=== PATIENT | male | born 1975 | race Caucasian/White ===

== ENCOUNTER 2019-02-07 17:26 | Emergency (ER) | payer OTHER ==
[2019-02-07 17:39] VITALS: BP 128/78
--- NOTE | 2019-02-07 17:57 | UC ---
Knee Pain HPI - HPI Summary HPI Summary: Fall within the hour: was leaving work at [employer], stepped down with right leg, felt immediate pain and fell backwards. Immediate onset of pain and swelling in the right knee with inability to bear weight. 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 Had a leg lengnthening procedure as a teen. 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 - History of Current Complaint Chief Complaint: UCLowerExtremity Stated Complaint: RT KNEE INJURY Time Seen by Provider: 02/07/19 17:45 Hx Obtained From: Patient Onset/Duration: Sudden Onset Severity Initially: Moderate Severity Currently: Moderate Pain Intensity: 9 Character: Throbbing Aggravating Factor(s): Movement Alleviating Factor(s): Rest, Cold, OTC Meds Associated Signs And Symptoms: Positive: Swelling Able to Bear Weight: No - Allergies/Home Medications Allergies/Adverse Reactions: Allergies Allergy/AdvReac Type Severity Reaction Status Date / Time amoxicillin Allergy Hives Verified 02/07/19 17:39 PMH/Surg Hx/FS Hx/Imm Hx - Additional Past Medical History Additional PMH: Right foot deformity, congenital right leg abnormality Previously Healthy: No - overweight, chronic tobacco use. Varicose veins with venous stasis - Surgical History Surgical History: Yes Surgery Procedure, Year, and Place: right leg multiple surgeries - Family History Known Family History: Positive: Hypertension, Other - mother has osteoarthritis , osteoporosis Negative: Cardiac Disease, Diabetes - Social History Occupation: Employed Full-time Lives: With Family Alcohol Use: Rare Substance Use Type: Marijuana, Other Substance Use Comment - Amount & Last Used: weekly Smoking Status (MU): Light Every Day Tobacco Smoker Review of Systems All Other Systems Reviewed And Are Negative: Yes Constitutional: Positive: Negative Skin: Positive: Other - erythema in right foreleg off and on consistent with venous stasis. Varicosities--tortuous on upper thigh Eyes: Positive: Negative ENT: Positive: Negative Respiratory: Positive: Negative Cardiovascular: Positive: Negative Gastrointestinal: Positive: Negative Genitourinary: Positive: Negative Motor: Positive: Decreased ROM Neurovascular: Positive: Negative Musculoskeletal: Positive: Arthralgia Neurological: Positive: Negative Psychological: Positive: Negative Is Patient Immunocompromised?: No Physical Exam Triage Information Reviewed: Yes Appearance: Pain Distress - moderate intially., Obese Vital Signs: Initial Vital Signs Temp 98.1 F 05/30/19 17:34 Pulse 87 02/07/19 17:34 Resp 12 02/07/19 17:34 BP 128/78 02/07/19 17:34 Pulse Ox 97 02/07/19 17:34 ENT: Positive: Normal ENT inspection Neck exam: Normal Respiratory: Positive: Lungs clear, Normal breath sounds Cardiovascular: Positive: RRR, No Murmur Musculoskeletal Exam: Other - grapefruit sized effusion right knee. No patellar tenderness. Musculoskeletal: Positive: ROM Limited @ - right oswaldo with active flexion to 80 degrees, cannot extend fully., Other: - Exam limited by pain and swelling. Moderate bilateral joint line tenderness. Right ankle with limted range of motion. Right foot deformity with 3 digits. Neurological: Positive: Alert, Muscle Tone Normal Psychological Exam: Normal Skin Exam: Other - diffuse erythema right ankle area with trace of pitting edema. small 1 cm scars right medial ankle area with mild tenderness. Tender varicosities medial right knee. Diagnostics - Radiology No standard instances Radiology Interpretation Completed By: ED Physician Summary of Radiographic Findings: right knee + soft tissue swelling. Medial joint space narrowing. Knee Pain Course/Dx - Course Course Of Treatment: Crutches, no weight bearing, ice and ibuprofen Referred to orthopedics. - Differential Dx/Diagnosis Differential Diagnosis/HQI/PQRI: Internal Derangement Of Knee, Sprain, Strain Provider Diagnosis: Strain of right knee Discharge - Sign-Out/Discharge Documenting (check all that apply): Patient Departure All imaging exams completed and their final reports reviewed: No - Discharge Plan Condition: Good Disposition: HOME Patient Education Materials: Knee Pain (ED) Forms: *Work Release Referrals: Jessica Carmona MD [Primary Care Provider] - Jennifer Delcid MD [Medical Doctor] - Additional Instructions: Off work until assessed by Orthopedics. Use crutchest to keep minimal weight through the right knee. Keep your leg elevated with ice on the knee for 30 minutes every 1 to 2 hours. Use ibuprofen 800mg three time daily for relief of pain. - Billing Disposition and Condition Condition: GOOD Disposition: Home
[2019-02-07] MEDS ORDERED: Ibuprofen TAB* 400 MG PO ONE (18:00)
== END 2019-02-07 19:25 | disposition home or self-care (01) ==
LOC: UCEAST 17:26
DX: S86.811A Strain of other muscle(s) and tendon(s) at lower leg level, right leg, initial encounter (principal); E66.9 Obesity, unspecified; Z88.0 Allergy status to penicillin; F17.290 Nicotine dependence, other tobacco product, uncomplicated; X50.0XXA Overexertion from strenuous movement or load, initial encounter; Y92.9 Unspecified place or not applicable
CPT/HCPCS: 99212; A9270-GY; G0463

== ENCOUNTER 2019-05-30 17:10 | Emergency (ER) | payer OTHER ==
--- OUTSIDE RECORDS SUMMARY | 2019-05-30 17:19 | XMS REPORT | Continuity of Care Document ---
:1975 External Reference #:[id number] Author Name Thalia Lilly Care Team Providers Name Role Phone Jessica Carmona MD Primary Care Physician Unavailable Payers Date Identification Numbers Payment Provider Subscriber Policy Number: [id number] [employer] Llyod Mcnamara Group Number: [id number] [address] PayID: [id number] [place] [address] Onset: 2019 Policy Number: Pradoher Ruben Mcnamara [id number] Group Name: F: [phone] [address] PayID: [id number] [place] [address] Problems Active Problems Provider Date Sprain of medial collateral ligament of right Ira Hill M.D. Onset: 04/15 knee, subsequent encounter Localized, primary osteoarthritis Ira Hill M.D. Onset: 02/11/2019 Other specified congenital deformities of feet Ashutosh Trimble MD Onset: 01/04 Family History Date Family Member(s) Observation Comments General Cancer Social History Type Date Description Comments Sex Unknown Lives With Alone Occupation Currently Working ETOH Use Never used alcohol Tobacco Use Start: Unknown Patient is a current smoker, smokes every day Smoking Status Reviewed: 04/15/19 Patient is a current smoker, smokes every day Exercise Type/Frequency Exercises sporadically Allergies, Adverse Reactions, Alerts Active Allergies Reaction Severity Comments Date Penicillin 01/04/2019 Medications Active Medications SIG Qnty Indications Ordering Date Provider Morphine Sulfate take 1 tab by mouth Unknown 30mg every 12 hours as Tablets needed for breakthrough pain Dilaudid 1 by mouth every 4 Unknown 2mg Tablets hours as needed pain Medications Administered in Office Medication SIG Qnty Indications Ordering Provider Date Depomedrol 40MG Ira Hill M.D. 02/11/2019 Injection Vital Signs Date Vital Result Comment 04/15/2019 1:43pm Height 75 inches 6'3" Heart Rate 103 /min BP Systolic 126 mmHg BP Diastolic 84 mmHg Body Temperature 98.2 F Pain Level 0 04/01/2019 3:12pm Height 75 inches 6'3" Weight 263.00 lb BP Systolic 130 mmHg BP Diastolic 74 mmHg Respiratory Rate 16 /min Body Temperature 97.4 F Pain Level 3 BMI (Body Mass Index) 32.9 kg/m2 02/11/2019 10:47am Height 75 inches 6'3" Weight 263.75 lb Heart Rate 76 /min BP Systolic 120 mmHg BP Diastolic 70 mmHg Respiratory Rate 18 /min Pain Level 7 BMI (Body Mass Index) 33.0 kg/m2 01/04/2019 3:11pm Height 73 inches 6'1" Weight 264.00 lb Heart Rate 84 /min BP Systolic 122 mmHg BP Diastolic 76 mmHg Respiratory Rate 16 /min Pain Level 5 BMI (Body Mass Index) 34.8 kg/m2 Procedures Date Code Description Status 02/11/2019 14006 Inject/Drain Joint/Bursa Major W/O US Completed Encounters Type Date Location Provider Dx Diagnosis Office Visit 02/11/2019 [facility] Ira Hill, M25.561 Pain in right 10:15a [facility] knee M25.461 Effusion, right knee M17.11 Unilateral primary osteoarthritis, right knee S83.411A Sprain of medial collateral ligament of right knee, init Office Visit 01/04/2019 3:00p [facility] Ashutosh Trimble, Q66.89 Other specified [facility] deformities of feet M19.071 Primary osteoarthritis, right ankle and foot Plan of Treatment 04/15/2019 - Ira Hill M.D.M25.561 Pain in right kneeFollow up:Follow up: As [id number] Effusion, right kneeS83.411D Sprain of medial collateral ligament of right knee, subsequent [id number] Unilateral primary osteoarthritis, right knee
--- OUTSIDE RECORDS SUMMARY | 2019-05-30 17:19 | XMS REPORT | Continuity of Care Document ---
:1975 External Reference #:[id number] Author Name Nikos Merritt DO, MPH Address [address] [place] [address], [address] [place] [id number] Care Team Providers Name Role Phone Roxie Payne M.D. - Physical Care Team Information Senior Security Architect [phone] Medicine & Rehabilitation Jessica Carmona M.D. - Family Medicine Care Team Information Senior Security Architect [phone] Vishnu Parikh M.D. - Family Medicine Care Team Information Senior Security Architect Problems Active Problems Provider Date Deformity Varus Foot Other Congenital Nikos Merritt DO, MPH Onset: 08/13/2004 Enthesopathy of ankle AND/OR tarsus Nikos Merritt DO, MPH Onset: 08/13/2004 Bunion Nikos Merritt DO, MPH Onset: 08/13/2004 Social History Type Date Description Comments Sex Unknown Tobacco Use Start: Unknown Patient is a current smoker, smokes every day Smoking Status Reviewed: 04/25/19 Patient is a current smoker, smokes every day Allergies, Adverse Reactions, Alerts Active Allergies Reaction Severity Comments Date Amoxicillin 07/20/2005 Medications Active Medications SIG Qnty Indications Ordering Provider Date Maryan si by mouth 60caps Nikos Merritt DO, 12/03/2012 30mg Caps ER every 12h for MPH 24HR pain chronic pain patient Dilaudid si every 4 to 180tabs Nikos Merritt DO, 12/03/2012 2mg Tablets 6 hours as MPH directed chronic pain patient Immunizations Description No Information Available Vital Signs Date Vital Result Comment 04/25/2019 2:35pm BP Systolic 144 mmHg BP Diastolic 82 mmHg Heart Rate 80 /min Respiratory Rate 20 /min Height 73 inches 6'1" Weight 259.00 lb Pain Level 5 Pain at this time. Pain Level With Medicine 5 on average with meds Pain Level Without Medicine 9 without meds BMI (Body Mass Index) 34.2 kg/m2 04/04/2019 2:00pm BP Systolic 138 mmHg BP Diastolic 74 mmHg Heart Rate 80 /min Respiratory Rate 20 /min Height 73 inches 6'1" Weight 254.00 lb Pain Level 5 Pain at this time. Pain Level With Medicine 4 on average with meds Pain Level Without Medicine 9 without meds BMI (Body Mass Index) 33.5 kg/m2 Results Description No Information Available Procedures Date Code Description Status 04/04/2019 96274 Therapeutic, Prophylactic Or Diagnostic Injection Subq/Im Completed 01/03/2019 68251 Omt 3-4 Body Regions Completed 12/05/2018 89125 Omt 5-6 Body Regions Completed 11/05/2018 37611 Omt 5-6 Body Regions Completed Medical Devices Description No Information Available Encounters Type Date Location Provider Dx Diagnosis Office Visit 04/04/2019 Main Office as Of Nikos Merritt DO G89.21 Chronic pain due 2:15p 10/12/13 MPH to trauma M54.2 Cervicalgia M54.5 Low back pain M25.571 Pain in right ankle and joints of right foot Z79.891 half-way (current) use of opiate analgesic Office Visit 03/05/2019 3:00p Main Office as Nikos Merritt G89.21 Chronic pain due Of 10/12/13 , MPH to trauma M54.2 Cervicalgia M54.6 Pain in thoracic spine M54.5 Low back pain Z79.891 termite treater helper (current) use of opiate analgesic Office Visit 01/31/2019 3:45p Main Office as Nikos Merritt G89.21 Chronic pain due Of 10/12/13 DO, MPH to trauma M54.5 Low back pain M54.6 Pain in thoracic spine M54.2 Cervicalgia Z79.891 half-way (current) use of opiate analgesic Office Visit 01/03/2019 4:00p Main Office as Nikos Merritt G89.21 Chronic pain due Of 10/12/13 DO, MPH to trauma M54.5 Low back pain M99.03 Segmental and somatic dysfunction of lumbar region M54.6 Pain in thoracic spine M99.02 Segmental and somatic dysfunction of thoracic region M54.2 Cervicalgia M99.01 Segmental and somatic dysfunction of cervical region Z79.891 termite treater helper (current) use of opiate analgesic Office Visit 12/05/2018 4:00p Main Office as Nikos Merritt G89.21 Chronic pain due Of 10/12/13 DO, MPH to trauma M54.2 Cervicalgia M99.01 Segmental and somatic dysfunction of cervical region M54.6 Pain in thoracic spine M99.02 Segmental and somatic dysfunction of thoracic region M54.5 Low back pain M99.03 Segmental and somatic dysfunction of lumbar region M53.3 Sacrococcygeal disorders, not elsewhere classified M99.04 Segmental and somatic dysfunction of sacral region M25.552 Pain in left hip M99.05 Segmental and somatic dysfunction of pelvic region Z79.891 termite treater helper (current) use of opiate analgesic M25.551 Pain in right hip Office Visit 11/05/2018 4:00p Main Office as Nikos Merritt G89.21 Chronic pain due Of 10/12/13 DO, MPH to trauma M54.2 Cervicalgia M99.01 Segmental and somatic dysfunction of cervical region M54.6 Pain in thoracic spine M99.02 Segmental and somatic dysfunction of thoracic region M54.5 Low back pain M99.03 Segmental and somatic dysfunction of lumbar region M53.3 Sacrococcygeal disorders, not elsewhere classified M99.04 Segmental and somatic dysfunction of sacral region M25.552 Pain in left hip M99.05 Segmental and somatic dysfunction of pelvic region Z79.891 half-way (current) use of opiate analgesic Assessments Date Code Description Provider 04/25/2019 G89.21 Chronic pain due to trauma Nikos Merritt DO MPH 04/25/2019 M54.5 Low back pain Nikos Merritt DO MPH 04/25/2019 M99.03 Segmental and somatic dysfunction of lumbar Nikos Merritt DO MPH region 04/25/2019 M54.6 Pain in thoracic spine Nikos Merritt DO MPH 04/25/2019 M99.02 Segmental and somatic dysfunction of Merritt, Nikos, DO, MPH thoracic region 04/25/2019 M54.2 Cervicalgia Merritt, Nikos, DO, MPH 04/25/2019 M99.01 Segmental and somatic dysfunction of Merritt, Nikos, DO, MPH cervical region 04/25/2019 Z79.891 half-way (current) use of opiate analgesic Merritt, Nikos , DO, MPH 04/04/2019 G89.21 Chronic pain due to trauma Merritt, Nikos, DO, MPH 04/04/2019 M54.2 Cervicalgia Merritt, Nikos, DO, MPH 04/04/2019 M54.5 Low back pain Merritt, Nikos, DO, MPH 04/04/2019 M25.571 Pain in right ankle and joints of right foot Merritt, Nikos , DO, MPH 04/04/2019 Z79.891 half-way (current) use of opiate analgesic Merritt, Nikos , DO, MPH 03/05/2019 G89.21 Chronic pain due to trauma Merritt, Nikos, DO, MPH 03/05/2019 M54.2 Cervicalgia Merritt, Nikos, DO, MPH 03/05/2019 M54.6 Pain in thoracic spine Merritt, Nikos, DO, MPH 03/05/2019 M54.5 Low back pain Merritt, Nikos, DO, MPH 03/05/2019 Z79.891 termite treater helper (current) use of opiate analgesic Merritt, Nikos , DO, MPH 01/31/2019 G89.21 Chronic pain due to trauma Merritt, Nikos, DO, MPH 01/31/2019 M54.5 Low back pain Merritt, Nikos, DO, MPH 01/31/2019 M54.6 Pain in thoracic spine Merritt, Nikos, DO, MPH 01/31/2019 M54.2 Cervicalgia Merritt, Nikos, DO, MPH 01/31/2019 Z79.891 termite treater helper (current) use of opiate analgesic Merritt, Nikos , DO, MPH 01/03/2019 G89.21 Chronic pain due to trauma Merritt, Nikos, DO, MPH 01/03/2019 M54.5 Low back pain Merritt, Nikos, DO, MPH 01/03/2019 M99.03 Segmental and somatic dysfunction of lumbar Merritt, Nikos, DO, MPH region 01/03/2019 M54.6 Pain in thoracic spine Merritt, Nikos, DO, MPH 01/03/2019 M99.02 Segmental and somatic dysfunction of Merritt, Nikos, DO, MPH thoracic region 01/03/2019 M54.2 Cervicalgia Merritt, Nikos, DO, MPH 01/03/2019 M99.01 Segmental and somatic dysfunction of Merritt, Nikos, DO, MPH cervical region 01/03/2019 Z79.891 half-way (current) use of opiate analgesic Merritt, Nikos , DO, MPH 12/05/2018 G89.21 Chronic pain due to trauma Merritt, Nikos, DO, MPH 12/05/2018 M54.2 Cervicalgia Merritt, Nikos, DO, MPH 12/05/2018 M99.01 Segmental and somatic dysfunction of Merritt, Nikos, DO, MPH cervical region 12/05/2018 M54.6 Pain in thoracic spine Merritt, Nikos, DO, MPH 12/05/2018 M99.02 Segmental and somatic dysfunction of Merritt, Nikos, DO, MPH thoracic region 12/05/2018 M54.5 Low back pain Merritt, Nikos, DO, MPH 12/05/2018 M99.03 Segmental and somatic dysfunction of lumbar Merritt, Nikos, DO, MPH region 12/05/2018 M53.3 Sacrococcygeal disorders, not elsewhere Merritt, Nikos, DO, MPH classified 12/05/2018 M99.04 Segmental and somatic dysfunction of sacral Merritt, Nikos, DO, MPH region 12/05/2018 M25.552 Pain in left hip Merritt, Nikos, DO, MPH 12/05/2018 M99.05 Segmental and somatic dysfunction of pelvic Merritt, Nikos, DO, MPH region 12/05/2018 Z79.891 half-way (current) use of opiate analgesic Merritt, Nikos , DO, MPH 12/05/2018 M25.551 Pain in right hip Merritt, Nikos, DO, MPH 11/05/2018 G89.21 Chronic pain due to trauma Merritt, Nikos, DO, MPH 11/05/2018 M54.2 Cervicalgia Nikos Merritt DO MPH 11/05/2018 M99.01 Segmental and somatic dysfunction of Nikos Merritt DO, MPH cervical region 11/05/2018 M54.6 Pain in thoracic spine Nikos Merritt DO MPH 11/05/2018 M99.02 Segmental and somatic dysfunction of Nikos Merritt DO, MPH thoracic region 11/05/2018 M54.5 Low back pain Nikos Merritt DO MPH 11/05/2018 M99.03 Segmental and somatic dysfunction of lumbar Nikos Merritt DO, MPH region 11/05/2018 M53.3 Sacrococcygeal disorders, not elsewhere Nkios Merritt DO MPH classified 11/05/2018 M99.04 Segmental and somatic dysfunction of sacral Nikos Merritt DO, MPH region 11/05/2018 M25.552 Pain in left hip Nikos Merritt DO MPH 11/05/2018 M99.05 Segmental and somatic dysfunction of pelvic Nikos Merritt DO, MPH region 11/05/2018 Z79.891 termite treater helper (current) use of opiate analgesic Nikos Merritt DO MPH Plan of Treatment Future Appointment(s):05/31/2019 2:30 pm - Nikos Merritt DO MPH at Main Office as Of 10/12/1407 - Nikos Merritt DO MPHG89.21 Chronic pain due to traumaComments:Chronic. Symptoms and complaints discussed and reviewed today. No significant changes in physical findings. Continue current medical pain management.M54.5 Low back painComments:Chronic. Symptoms and complaints discussed and reviewed today.No changes in physical findings. Patient is stable and comfortable when current medical therapy is rendered.M99.03 Segmental and somatic dysfunction of lumbar regionComments:Chronic. Symptoms and complaints discussed and reviewed today. Lumbar somatic dysfunctions noted warranting OMT. Continue current medical pain management and OMT. [id number]. OMT performed after evaluation. HVLA.M54.6 Pain in thoracic spineComments:Chronic.Symptoms and complaints discussed and reviewed today. No significant changes in physical findings. Continue current medical pain management.M99.02 Segmental and somatic dysfunction of thoracic regionComments:Chronic. Symptoms and complaints discussed and reviewed today. Notable somatic dysfunctions noted warranting OMT. Continue current medical pain management and OMT. [id number]. OMT performed after evaluation. HVLA.M54.2 CervicalgiaComments:Chronic. Symptoms and complaints discussed and reviewed today. No significant changes in physical findings. Continue current medical pain management.M99.01 Segmental and somatic dysfunction of cervical regionComments:Chronic. Symptoms and complaints discussed and reviewed today. Somatic dysfunctions noted warrantingOMT. Continue current medical pain management and OMT. [id number]. OMT performed.Z79.891 half-way (current) use of opiate analgesicNew Labs:Urine Drug Screen, Ordered: 04/25/19Comments:Urine drug screen sample taken today to monitor opiate use and to monitor use of illicit substances.Will discuss results at next appointment.The following tests were ordered:6 AM, AMPH, GABINO, IBRAHIMA, BUP, CARIS, COCM, COT, ETG, FENT, MCSHSG, OPI, OXY, PCP, TAPEN, XTSY, ZOLP. A urine drug test (UDT) was ordered for this patient and collected on site today. Creatinine has been ordered as well for specimen validity, not for kidney function. Preliminary UDT results are not final and should not be used to determine patient care or plan of treatment. Initially a qualitative immunoassay screen will be done. Any inconsistent or positive findings will be further tested with a more comprehensive quantitative confirmation LCMS study. It is part of the treatment process of prescribing controlled substances and is considered standard of care.AllComments:Continue current medical pain management ; injection therapy, osteopathic manipulation, PT / modalities, and consults as needed to manage chronic pain.Non - opioid pain management discussed and optionsdiscussed.Side effects discussed; anticipatory guidance given. Patient clearly understand and agree with all medical treatments and suggestions. All medicines prescribed are adequate and appropriate for this patient's complaint of pain, medical history, physical, and personal goals.Goals of Treatment are to provide adequate and appropriate multidisciplinary medical pain management to increase/ maintain patient's quality of life and functionality while maintaining satisfactory side effect profile andminimizing custodial end-organ damage. Importance of regular nutrition throughout the day discussed.Activity as toleratedContinue with PCP Functional Status Description No Information Available Mental Status Description No Information Available Referrals Description No Information Available
--- OUTSIDE RECORDS SUMMARY | 2019-05-30 17:20 | XMS REPORT | Continuity of Care Document ---
:1975 External Reference #:[id number] Author Name Stella Quintero Care Team Providers Name Role Phone Jessica Carmona MD Primary Care Physician Unavailable Payers Date Identification Numbers Payment Provider Subscriber Policy Number: [id number] [employer] Lloyd Mcnamara Group Number: [id number] [address] PayID: [id number] [place] [address] Onset: 2019 Policy Number: Pradojuanita Mcnamara [id number] Group Name: F: [phone] [address] PayID: [id number] [place] [address] Problems Active Problems Provider Date Localized, primary osteoarthritis Ira Hill M.D. Onset: 02/11/2019 Other specified congenital deformities of feet Ashutosh Trimble MD Onset: 01/04 Family History Date Family Member(s) Observation Comments General Cancer Social History Type Date Description Comments Sex Unknown Lives With Alone Occupation Currently Working ETOH Use Never used alcohol Tobacco Use Start: Unknown Patient is a current smoker, smokes every day Smoking Status Reviewed: 04/01/19 Patient is a current smoker, smokes every [...] Injection Vital Signs Date Vital Result Comment 04/01/2019 3:12pm Height 75 inches 6'3" Weight [...] 5 BMI (Body Mass Index) 34.8 kg/m2 Results Test Date Facility Test Result H/L Range Note Xray 02/11/2019 [facility] Knee Right 1-2 VWS <pending> [address] [address] [phone] Procedures Date Code Description Status 02/11/2019 89635 Inject/Drain Joint/Bursa Major W/O US Completed Encounters Type Date Location Provider Dx Diagnosis Office Visit 04/01/2019 [facility], M25.561 Pain in right 2:30p [facility] knee M17.11 Unilateral primary osteoarthritis, right knee S83.411A Sprain of medial collateral ligament of right knee, init Office Visit 02/11/2019 10:15a [facility] Ira Hill, M25.561 Pain in right [facility] knee M25.461 Effusion, right knee M17.11 Unilateral primary osteoarthritis, right knee S83.411A Sprain of medial collateral ligament of right knee, init Office Visit 01/04/2019 3:00p [facility]opedic Ashutosh Trimble, Q66.89 Other specified [facility] deformities of feet M19.071 Primary osteoarthritis, right ankle and foot Plan of Treatment Future Appointment(s):04/15/2019 1:30 pm - Ira [facility] M[facility]. [facility]2019 - Ira Hill M.D.M25.561 Pain in right kneeFollow up:Follow up: 2 wksM17.11 Unilateral primary osteoarthritis, right kneeS83.411A Sprain of medial collateral ligament of right knee, initial
[2019-05-30 17:42] VITALS: BP 121/82
--- NOTE | 2019-05-30 18:29 | UC ---
Knee Pain HPI - HPI Summary HPI Summary: 44-year-old male who has a history of knee injury in January of this year. He underwent extensive physical therapy. He states over the past week or so he has felt like his knee is mildly unstable and today when he was coming down steps he stepped on it "just right" and had pain to the lateral aspect. He did not fall. 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 - History of Current Complaint Chief Complaint: UCLowerExtremity Stated Complaint: KNEE INJURY Time Seen by Provider: 05/30/19 18:05 Hx Obtained From: Patient Onset/Duration: Gradual Onset Severity Initially: Mild Severity Currently: Moderate Pain Intensity: 8 Character: Dull, Aching Aggravating Factor(s): Movement, Weight Bearing Alleviating Factor(s): Nothing Associated Signs And Symptoms: Positive: Negative - Allergies/Home Medications Allergies/Adverse Reactions: Allergies Allergy/AdvReac Type Severity Reaction Status Date / Time amoxicillin Allergy Hives Verified 05/30/19 17:42 PMH/Surg Hx/FS Hx/Imm Hx Previously Healthy: Yes - Surgical History Surgical History: Yes Surgery Procedure, Year, and Place: right leg multiple surgeries - Family History Known Family History: Positive: Hypertension, Other - mother has osteoarthritis , osteoporosis Negative: Cardiac Disease, Diabetes - Social History Alcohol Use: Rare Substance Use Type: Other Substance Use Comment - Amount & Last Used: 3x weekly Smoking Status (MU): Heavy Every Day Tobacco Smoker Type: Cigarettes Review of Systems All Other Systems Reviewed And Are Negative: Yes Motor: Positive: Negative Neurovascular: Positive: Negative Musculoskeletal: Positive: Other: - He complains of pain to the lateral aspect of his right knee. Neurological: Positive: Negative Is Patient Immunocompromised?: No Physical Exam Triage Information Reviewed: Yes Appearance: Well-Appearing, No Pain Distress, Well-Nourished Vital Signs: Initial Vital Signs Temp 98.8 F 05/30/19 17:37 Pulse 96 05/30/19 17:37 Resp 16 05/30/19 17:37 BP 121/82 05/30/19 17:37 Pulse Ox 96 05/30/19 17:37 Vital Signs Reviewed: Yes Musculoskeletal: Positive: Other: - Pain on palpation to the lateral aspect of right knee, patellar and knee ligaments appear intact. Good peripheral pulses neuro sensation capillary refill. No swelling, deformity, bruising or redness is noted. Neurological: Positive: Alert, Muscle Tone Normal Psychological Exam: Normal Skin Exam: Normal Knee Pain Course/Dx - Course Course Of Treatment: Right knee x-ray: No fracture Patient will be given a knee immobilizer, he has crutches at home and one crutch here. He is to follow-up with his orthopedist who saw him for his original knee injury in January. Patient is agreeable to this plan of action. - Differential Dx/Diagnosis Provider Diagnosis: Right knee sprain Discharge ED - Sign-Out/Discharge Documenting (check all that apply): Patient Departure All imaging exams completed and their final reports reviewed: No - Discharge Plan Condition: Fair Disposition: HOME Patient Education Materials: Knee Sprain (DC) Forms: *Work Release Referrals: Jessica Carmona MD [Primary Care Provider] - Ira Hill MD [Medical Doctor] - Additional Instructions: Elevate as much as possible and apply ice intermittently over the next day or 2. Follow-up with the orthopedist. Weightbearing as pain permits. Tylenol every 4 hours and Motrin every 8 hours as needed for pain. - Billing Disposition and Condition Condition: FAIR Disposition: Home - Attestation Statements Provider Attestation: I was available for consult. This patient was seen by the CARLOS ALBERTO. The patient was not presented to, seen by, or examined by me. -Donna
--- NOTE | 2019-05-31 08:49 | UC ---
- Progress Note Progress Note: Patient Name: NAVJOT MAR Medical Record#: [id number] Ordering Physician: Jane PIÑA Acct.#: [id number] : 1975 Age: 44 Sex: M Location: [facility] Exam Date: 05/30/191746 ADM Status: [facility] Order Information: KNEE RIGHT 4+ VWS Accession Number: [id number] CPT: 98004 INDICATION: Right knee pain. TECHNIQUE: 4 views of the right knee were obtained. FINDINGS: The bones appear osteopenic and in normal alignment. No joint effusion or fracture is seen. Joint spaces appear maintained. IMPRESSION: NO EVIDENCE FOR FRACTURE. R0 Preliminary Imaging Read R0 <Electronically signed by Ang Quarles MD in OV> 05/31/19 07 Dictated By: Ang Quarles MD Dictated Date/Time: 05/31/19658 Transcribed Date/Time: 05/31/19658 Copy to: CC:Jessica Carmona MD; Conchita Umaña MD; Jane PIÑA [facility] Imaging - [facility] [address] [address] ph ([phone]) ph ([phone]) ph ([phone]) This report is only to be considered final once signed by the Provider(s) as displayed in the "<Electronically Signed by >" field (s). Absence of a signature indicates the report is in a draft status and still needs to be finalized. In the event this document was created by someone other than the signing Provider, the individual initiating the document will be listed in the "Entered by:" or "Dictated by:" pop. 1 of 1 Course/Dx - Diagnoses Provider Diagnoses: Right knee sprain Discharge ED - Sign-Out/Discharge Documenting (check all that apply): Post-Discharge Follow Up All imaging exams completed and their final reports reviewed: Yes - Discharge Plan Condition: Fair Disposition: HOME Patient Education Materials: Knee Sprain (DC) Forms: *Work Release Referrals: Jessica Carmona MD [Primary Care Provider] - Ira Hill MD [Medical Doctor] - Additional Instructions: Elevate as much as possible and apply ice intermittently over the next day or 2. Follow-up with the orthopedist. Weightbearing as pain permits. Tylenol every 4 hours and Motrin every 8 hours as needed for pain. - Billing Disposition and Condition Condition: FAIR Disposition: Home
== END 2019-05-30 18:35 | disposition home or self-care (01) ==
LOC: UCEAST 17:10
DX: S83.91XA Sprain of unspecified site of right knee, initial encounter (principal); X58.XXXA Exposure to other specified factors, initial encounter; Y92.9 Unspecified place or not applicable; F17.210 Nicotine dependence, cigarettes, uncomplicated
CPT/HCPCS: 99211; G0463

== ENCOUNTER 2019-10-11 09:16 | Emergency (ER) | payer OTHER ==
--- OUTSIDE RECORDS SUMMARY | 2019-10-11 09:24 | XMS REPORT | Continuity of Care Document ---
:1975 External Reference #:[id number] Author Name Nikos Merritt DO, MPH Address [address] [place] [address], [address] [place] [id number] Care Team Providers Name Role Phone Roxie Payne M.D. - Physical Care Team Information Line Helper [phone] Medicine & Rehabilitation Jessica Carmona M.D. - Family Medicine Care Team Information Line Helper [phone] Vishnu Parikh M.D. - Family Medicine Care Team Information Line Helper Problems Active Problems Provider Date Deformity Varus Foot Other Congenital Nikos Merritt DO, MPH Onset: 08/13/2004 Enthesopathy of ankle AND/OR tarsus Nikos Merritt DO, MPH Onset: 08/13/2004 Bunion Nikos Merritt DO, MPH Onset: 08/13/2004 Social History Type Date Description Comments Sex Unknown Tobacco Use Start: Unknown Patient is a current smoker, smokes every day Smoking Status Reviewed: 08/29/19 Patient is a current smoker, smokes every [...] Available Vital Signs Date Vital Result Comment 08/29/2019 3:41pm BP Systolic 142 mmHg BP Diastolic 88 mmHg Heart Rate 84 /min Respiratory Rate 20 /min Height 73 inches 6'1" Weight 232.00 lb Pain Level 6 Pain at this time. Pain Level With Medicine 6 on average with meds Pain Level Without Medicine 9 without meds BMI (Body Mass Index) 30.6 kg/m2 08/01/2019 4:02pm BP Systolic 128 mmHg BP Diastolic 84 mmHg Heart Rate 86 /min Respiratory Rate 20 /min Height 73 inches 6'1" Weight 262.00 lb Pain Level 5 Pain at this time. Pain Level With Medicine 5 on average with meds Pain Level Without Medicine 9 without meds BMI (Body Mass Index) 34.6 kg/m2 Results Description No Information Available Procedures Date Code Description Status 08/01/2019 64841 Omt 3-4 Body Regions Completed 07/03/2019 87305 Omt 3-4 Body Regions Completed 04/25/2019 86074 Omt 3-4 Body Regions Completed 04/04/2019 74341 Therapeutic, Prophylactic Or Diagnostic Injection Subq/Im Completed Medical Devices Description No Information Available Encounters Type Date Location Provider Dx Diagnosis Office Visit 08/01/2019 Main Office as Of Nikos Merritt DO, G89.21 Chronic pain due 3:45p 10/12/13 MPH to trauma M54.2 Cervicalgia M99.01 Segmental and somatic dysfunction of cervical region M54.6 Pain in thoracic spine M99.02 Segmental and somatic dysfunction of thoracic region M54.5 Low back pain M99.03 Segmental and somatic dysfunction of lumbar region M25.571 Pain in right ankle and joints of right foot Z79.891 FDC (current) use of opiate analgesic Office Visit 07/03/2019 3:30p Main Office as Nikos Merritt G89.21 Chronic pain due Of 10/12/13 DO, MPH to trauma M54.2 Cervicalgia M99.01 Segmental and somatic dysfunction of cervical region M54.6 Pain in thoracic spine M99.02 Segmental and somatic dysfunction of thoracic region M54.5 Low back pain M99.03 Segmental and somatic dysfunction of lumbar region Z79.891 FDC (current) use of opiate analgesic Office Visit 06/03/2019 3:30p Main Office as Nikos Merritt G89.21 Chronic pain due Of 10/12/13 DO, MPH to trauma M54.5 Low back pain M54.6 Pain in thoracic spine M54.2 Cervicalgia M25.571 Pain in right ankle and joints of right foot Z79.891 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 Office Visit 04/25/2019 2:30p Main Office as Nikos Merritt G89.21 Chronic pain due Of 10/12/13 DO, MPH to trauma M54.5 Low back pain M99.03 Segmental and somatic dysfunction of lumbar region M54.6 Pain in thoracic spine M99.02 Segmental and somatic dysfunction of thoracic region M54.2 Cervicalgia M99.01 Segmental and somatic dysfunction of cervical region Z79.891 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 Office Visit 04/04/2019 2:15p Main Office as Nikos Merritt G89.21 Chronic pain due Of 10/12/13 DO, MPH to trauma M54.2 Cervicalgia M54.5 Low back pain M25.571 Pain in right ankle and joints of right foot Z79.891 FDC (current) use of opiate analgesic Office Visit 03/05/2019 3:00p Main Office as Nikos Merritt G89.21 Chronic pain due Of 10/12/13 DO, MPH to trauma M54.2 Cervicalgia M54.6 Pain in thoracic spine M54.5 Low back pain Z79.891 FDC (current) use of opiate analgesic Assessments Date Code Description Provider 08/29/2019 G89.21 Chronic pain due to trauma Nikos Merritt DO, MPH 08/29/2019 M54.2 Cervicalgia MerrittNikos camarillo DO, MPH 08/29/2019 M54.6 Pain in thoracic spine Nikos Merritt DO, MPH 08/29/2019 M54.5 Low back pain Nikos Merritt DO, MPH 08/29/2019 M25.571 Pain in right ankle and joints of right foot Nikos Merritt , DO, MPH 08/29/2019 Z79.891 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 Nikos Merritt , DO, MPH 08/01/2019 G89.21 Chronic pain due to trauma Merritt, Nikos, DO, MPH 08/01/2019 M54.2 Cervicalgia Merritt, Nikos, DO, MPH 08/01/2019 M99.01 Segmental and somatic dysfunction of Merritt, Nikos, DO, MPH cervical region 08/01/2019 M54.6 Pain in thoracic spine Merritt, Nikos, DO, MPH 08/01/2019 M99.02 Segmental and somatic dysfunction of Merritt, Nikos, DO, MPH thoracic region 08/01/2019 M54.5 Low back pain Merritt, Nikos, DO, MPH 08/01/2019 M99.03 Segmental and somatic dysfunction of lumbar Merritt, Nikos, DO, MPH region 08/01/2019 M25.571 Pain in right ankle and joints of right foot Merritt, Nikos , DO, MPH 08/01/2019 Z79.891 FDC (current) use of opiate analgesic Merritt, Nikos , DO, MPH 07/03/2019 G89.21 Chronic pain due to trauma Merritt, Nikos, DO, MPH 07/03/2019 M54.2 Cervicalgia Merritt, Nikos, DO, MPH 07/03/2019 M99.01 Segmental and somatic dysfunction of Merritt, Nikos, DO, MPH cervical region 07/03/2019 M54.6 Pain in thoracic spine Merritt, Nikos, DO, MPH 07/03/2019 M99.02 Segmental and somatic dysfunction of Merritt, Nikos, DO, MPH thoracic region 07/03/2019 M54.5 Low back pain Merritt, Nikos, DO, MPH 07/03/2019 M99.03 Segmental and somatic dysfunction of lumbar Merritt, Nikos, DO, MPH region 07/03/2019 Z79.891 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 Merritt, Nikos , DO, MPH 06/03/2019 G89.21 Chronic pain due to trauma Merritt, Nikos, DO, MPH 06/03/2019 M54.5 Low back pain Merritt, Nikos, DO, MPH 06/03/2019 M54.6 Pain in thoracic spine Merritt, Nikos, DO, MPH 06/03/2019 M54.2 Cervicalgia Merritt, Nikos, DO, MPH 06/03/2019 M25.571 Pain in right ankle and joints of right foot Merritt, Nikos , DO, MPH 06/03/2019 Z79.891 FDC (current) use of opiate analgesic Merritt, Nikos , DO, MPH 04/25/2019 G89.21 Chronic pain due to trauma Merritt, Nikos, DO, MPH 04/25/2019 M54.5 Low back pain Merritt, Nikos, DO, MPH 04/25/2019 M99.03 Segmental and somatic dysfunction of lumbar Merritt, Nikos, DO, MPH region 04/25/2019 M54.6 Pain in thoracic spine Merritt, Nikos, DO, MPH 04/25/2019 M99.02 Segmental and somatic dysfunction of Merritt, Nikos, DO, MPH thoracic region 04/25/2019 M54.2 Cervicalgia Merritt, Nikos, DO, MPH 04/25/2019 M99.01 Segmental and somatic dysfunction of Merritt, Nikos, DO, MPH cervical region 04/25/2019 Z79.891 FDC (current) use of opiate analgesic Merritt, Nikos , DO, MPH 04/04/2019 G89.21 Chronic pain due to trauma Merritt, Nikos, DO, MPH 04/04/2019 M54.2 Cervicalgia Merritt, Nikos, DO, MPH 04/04/2019 M54.5 Low back pain Merritt, Nikos, DO, MPH 04/04/2019 M25.571 Pain in right ankle and joints of right foot Merritt, Nikos , DO, MPH 04/04/2019 Z79.891 FDC (current) use of opiate analgesic Merritt, Nikos , DO, MPH 03/05/2019 G89.21 Chronic pain due to trauma Merritt, Nikos, DO, MPH 03/05/2019 M54.2 Cervicalgia Merritt, Nikos, DO, MPH 03/05/2019 M54.6 Pain in thoracic spine Merritt, Nikos, DO, MPH 03/05/2019 M54.5 Low back pain Merritt, Nikos, DO, MPH 03/05/2019 Z79.891 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 Symptoms and complaints discussed and reviewed today. No significant changes in physical findings. Continue current medical pain management.M54.2 CervicalgiaComments:Chronic. Symptoms and complaints discussed and reviewed today. No significant changes in physical findings. Continue current medical pain management.M54.6 Pain in thoracic spineComments: Chronic.Symptoms and complaints discussed and reviewed today. No significant changes in physical findings. Continue current medical pain management.M54.5 Low back painComments:Chronic. Symptoms and complaints discussed and reviewed today.No changes in physical findings. Patient is stable and comfortable when current medical therapy is rendered.M25.571 Pain in right ankle and joints of right footComments:Chronic. Symptoms and complaints discussed and reviewed today. No significant changes in physical findings. Continue current medical pain management.Z79.891 FDC (current) use of opiate analgesicNew Labs: Urine Drug Screen, Ordered: 08/29/19Comments:Urine drug screen sample taken today to monitor opiate use and to monitor use of illicit substances.Will discuss results at next appointment.The following tests were ordered:6 AM, AMPH , GABINO, IBRAHIMA, BUP, CARIS, COCM, ETG, FENT, MCSHSG, OPI, OXY, PCP, TAPEN, XTSY , ZOLP. A urine drug test (UDT) was ordered for this patient and collected on site today. Creatinine has been ordered as well for specimen validity, not for kidney function. Preliminary UDT results are not final and should not be used to determine patient care or plan of treatment. Initially a qualitative immunoassay screen will bedone. Any inconsistent or positive findings will be [...] while maintaining satisfactory side effect profile andminimizing predatory animal exterminator end-organ damage. Importance of regular nutrition throughout the day discussed.Activity as toleratedContinue with PCP Functional Status Description No Information Available Mental Status Description No Information Available Referrals Description No Information Available
--- OUTSIDE RECORDS SUMMARY | 2019-10-11 09:24 | XMS REPORT | Continuity of Care Document ---
:1975 External Reference #:[id number] Author Name Nikos Merritt DO, MPH Address [address] [place] [address], [address] [place] [id number] Care Team Providers Name Role Phone Roxie Payne M.D. - Physical Care Team Information Internal [employer] [facility] Jessica Carmona M.D. - Family Medicine Care Team Information Internal Revenue Agent Vishnu Parikh M.D. - Family Medicine Care Team Information Internal Revenue Agent Problems Active Problems Provider Date Deformity Varus Foot Other Congenital Nikos Merritt DO, MPH Onset: 08/13/2004 Enthesopathy of ankle AND/OR tarsus Nikos Merritt DO, MPH Onset: 08/13/2004 Bunion Nikos Merritt DO, MPH Onset: 08/13/2004 Social History Type Date Description Comments Sex Unknown Tobacco Use Start: Unknown Patient is a current smoker, smokes every day Smoking Status Reviewed: 09/30/19 Patient is a current smoker, smokes every [...] Available Vital Signs Date Vital Result Comment 09/30/2019 3:31pm BP Systolic 126 mmHg BP Diastolic 78 mmHg Heart Rate 74 /min Respiratory Rate 20 /min Height 73 inches 6'1" Weight 262.00 lb Pain Level 6 Pain at this time. Pain Level With Medicine 5 on average with meds Pain Level Without Medicine 9 without meds BMI (Body Mass Index) 34.6 kg/m2 08/29/2019 3:41pm BP Systolic 142 mmHg BP Diastolic 88 mmHg Heart Rate 84 /min Respiratory Rate 20 /min Height 73 inches 6'1" Weight 232.00 lb Pain Level 6 Pain at this time. Pain Level With Medicine 6 on average with meds Pain Level Without Medicine 9 without meds BMI (Body Mass Index) 30.6 kg/m2 Results Description No Information Available Procedures Date Code Description Status 08/01/2019 47745 Omt 3-4 Body Regions Completed 07/03/2019 55705 Omt 3-4 Body Regions Completed 04/25/2019 25349 Omt 3-4 Body Regions Completed 04/04/2019 92623 Therapeutic, Prophylactic Or Diagnostic Injection Subq/Im Completed Medical Devices Description No Information Available Encounters Type Date Location Provider Dx Diagnosis Office Visit 08/29/2019 Main Office as Of Nikos Merritt DO G89.21 Chronic pain due 3:45p 10/12/13 MPH to trauma M54.2 Cervicalgia M54.6 Pain in thoracic spine M54.5 Low back pain M25.571 Pain in right ankle and joints of right foot Z79.891 [employer] (current) use of opiate analgesic Office Visit 08/01/2019 3:45p Main Office as Nikos Merritt G89.21 Chronic pain due Of 10/12/13 DO, MPH to trauma M54.2 Cervicalgia M99.01 Segmental and somatic dysfunction of cervical region M54.6 Pain in thoracic spine M99.02 Segmental and somatic dysfunction of thoracic region M54.5 Low back pain M99.03 Segmental and somatic dysfunction of lumbar region M25.571 Pain in right ankle and joints of right foot Z79.891 [employer] (current) use of opiate analgesic Office Visit 07/03/2019 3:30p Main Office as Nikos Merritt G89.21 Chronic pain due Of 10/12/13 DO, MPH to trauma M54.2 Cervicalgia M99.01 Segmental and somatic dysfunction of cervical region M54.6 Pain in thoracic spine M99.02 Segmental and somatic dysfunction of thoracic region M54.5 Low back pain M99.03 Segmental and somatic dysfunction of lumbar region Z79.891 [employer] (current) use of opiate analgesic Office Visit 06/03/2019 3:30p Main Office as Nikos Merritt G89.21 Chronic pain due Of 10/12/13 DO, MPH to trauma M54.5 Low back pain M54.6 Pain in thoracic spine M54.2 Cervicalgia M25.571 Pain in right ankle and joints of right foot Z79.891 [employer] (current) use of opiate analgesic Office Visit 04/25/2019 2:30p Main Office as Nikos Merritt G89.21 Chronic pain due Of 10/12/13 DO, MPH to trauma M54.5 Low back pain M99.03 Segmental and somatic dysfunction of lumbar region M54.6 Pain in thoracic spine M99.02 Segmental and somatic dysfunction of thoracic region M54.2 Cervicalgia M99.01 Segmental and somatic dysfunction of cervical region Z79.891 [facility] (current) use of opiate analgesic Office Visit 04/04/2019 2:15p Main Office as Nikos Merritt G89.21 Chronic pain due Of 10/12/13 DO, MPH to trauma M54.2 Cervicalgia M54.5 Low back pain M25.571 Pain in right ankle and joints of right foot Z79.891 [employer] (current) use of opiate analgesic Assessments Date Code Description Provider 09/30/2019 G89.21 Chronic pain due to trauma Nikos Merritt DO, MPH 09/30/2019 M54.2 Cervicalgia Nikos Merritt DO, MPH 09/30/2019 M99.01 Segmental and somatic dysfunction of Nikos Merritt DO, MPH cervical region 09/30/2019 M54.6 Pain in thoracic spine Nikos Merritt DO, MPH 09/30/2019 M99.02 Segmental and somatic dysfunction of Nikos Merritt DO, MPH thoracic region 09/30/2019 M54.5 Low back pain Nikos Merritt DO, MPH 09/30/2019 M99.03 Segmental and somatic dysfunction of lumbar Merritt, Nikos, DO, MPH region 09/30/2019 M25.561 Pain in right knee Merritt, Nikos, DO, MPH 09/30/2019 Z79.891 [employer] (current) use of opiate analgesic Merritt, Nikos , DO, MPH 09/30/2019 Z13.31 Encounter for screening for depression Merritt, Nikos, DO, MPH 08/29/2019 G89.21 Chronic pain due to trauma Merritt, Nikos, DO, MPH 08/29/2019 M54.2 Cervicalgia Merritt, Nikos, DO, MPH 08/29/2019 M54.6 Pain in thoracic spine Merritt, Nikos, DO, MPH 08/29/2019 M54.5 Low back pain Merritt, Nikos, DO, MPH 08/29/2019 M25.571 Pain in right ankle and joints of right foot Merritt, Nikos , DO, MPH 08/29/2019 Z79.891 [employer] (current) use of opiate analgesic Merritt, Nikos , DO, MPH 08/01/2019 G89.21 Chronic pain [...] Merritt, Nikos , DO, MPH 08/01/2019 Z79.891 [facility] (current) use of opiate analgesic Merritt, Nikos [...] Merritt, Nikos, DO, MPH region 07/03/2019 Z79.891 [employer] (current) use of opiate analgesic Merritt, Nikos [...] Merritt, Nikos , DO, MPH 06/03/2019 Z79.891 [facility] (current) use of opiate analgesic Merritt, Nikos [...] Nikos, DO, MPH cervical region 04/25/2019 Z79.891 [facility] (current) use of opiate analgesic Merritt, Nikos , DO, MPH 04/04/2019 G89.21 Chronic pain due to trauma Nikos Merritt DO MPH 04/04/2019 M54.2 Cervicalgia iNkos Merritt DO MPH 04/04/2019 M54.5 Low back pain Nikos Merritt DO MPH 04/04/2019 M25.571 Pain in right ankle and joints of right foot Nikos Merritt DO MPH 04/04/2019 Z79.891 [employer] (current) use of opiate analgesic Nikos Merritt DO MPH Plan of Treatment Future Appointment(s):10/30/2019 3:30 pm - Nikos Merritt DO MPH at Main Office as Of 10/12/1400 - Nikos Merritt DO, MPHG89.21 Chronic pain [...] Continue current medical pain management and OMT. [id number]. OMT performed.M54.6 Pain in thoracic spineComments: Chronic.Symptoms and complaints discussed and reviewed today. No significant changes in physical findings. Continue current medical pain management.M99.02 Segmental and somatic dysfunction of thoracic regionComments:Chronic. Symptoms and complaints discussed and reviewed today. Notable somatic dysfunctions noted warranting OMT. Continue current medical pain management and OMT. [id number]. OMT performed after evaluation. HVLA.M54.5 Low back painComments:Chronic. Symptoms and complaints discussed and reviewed today.No changes in physical findings. Patient is stable and comfortable when current medical therapy is rendered.M99.03 Segmental and somatic dysfunction of lumbar regionComments: Chronic. Symptoms and complaints discussed and reviewed today. Lumbar somatic dysfunctions noted warranting OMT. Continue current medical pain management and OMT. [id number]. OMT performed after evaluation. HVLA.M25.561 Pain in right kneeComments:Chronic.Symptoms and complaints discussed and reviewed today. No significant changes in physical findings. Continue current medical pain management.Z79.891 [facility] (current) use of opiate analgesicNew Labs:Urine Drug Screen, Ordered: 09/30/19Comments:Urine drug screen sample taken today to monitor opiate use and to monitor use of illicit substances.Will discuss results at next appointment.The following tests were ordered:6 AM, AMPH, GABINO, IBRAHIMA, BUP, CARIS, COCM, ETG, FENT, [...] controlled substances and is considered standard of care.Z13.31 Encounter for screening for depressionComments:Followed by PCP. Reassurance and counseling given. Will follow in terms of pain management.AllComments:Continue current medical pain management; injection therapy, osteopathic manipulation, PT / modalities, [...] while maintaining satisfactory side effect profile andminimizing usp end-organ damage. Importance of regular nutrition throughout the day discussed.Activity as toleratedContinue with PCP Functional Status Description No Information Available Mental Status Description No Information Available Referrals Description No Information Available
--- OUTSIDE RECORDS SUMMARY | 2019-10-11 09:24 | XMS REPORT | Continuity of Care Document ---
:1975 External Reference #:[id number] Author Name Ira Hill M.D. (transmitted by agent of provider Thalia Lilly) Address [address] [facility] [place] [address] Care Team Providers Name Role Phone Jessica Carmona MD - Family Care Team Information Cma [phone] Medicine Problems Active Problems Provider Date Other specified congenital deformities of feet Ashutosh Trimble MD Onset: 01/04 Localized, primary osteoarthritis Ira Hill M.D. Onset: 02/11/2019 Sprain of medial collateral ligament of right Ira Hill M.D. Onset: 04/15 knee, subsequent encounter Current tear of medial cartilage AND/OR meniscus Ira Hill M.D. Onset: of knee Social History Type Date Description Comments Sex Unknown ETOH Use Never used alcohol Tobacco Use Start: Unknown Patient is a current smoker, smokes every day Smoking Status Reviewed: 10/09/19 Patient is a current smoker, smokes every day Exercise Type/Frequency Exercises sporadically Allergies, Adverse Reactions, Alerts Active Allergies Reaction Severity Comments Date Penicillin 01/04/2019 Medications Active Medications SIG Qnty Indications Ordering Date Provider Compression - ble 1units M25.461 Ira Hill, 07/01/2019 Stockings swelling/edema- need M.D. Misc thigh high Morphine Sulfate take 1 tab by mouth Unknown every 12 hours as 30mg Tablets needed for breakthrough pain Dilaudid 1 by mouth every 4 Unknown 2mg hours as needed pain Tablets Medications Administered in Office Medication SIG Qnty Indications Ordering Provider Date Depomedrol 40MG Ira Hill M.D. 02/11/2019 Injection Immunizations Description No Information Available Vital Signs Date Vital Result Comment 10/09/2019 10:49am Height 76 inches 6'4" Weight 264.00 lb Heart Rate 91 /min BP Systolic 126 mmHg BP Diastolic 71 mmHg Body Temperature 98.2 F Pain Level 4 BMI (Body Mass Index) 32.1 kg/m2 07/01/2019 3:59pm Height 76 inches 6'4" Weight 263.00 lb BP Systolic 120 mmHg BP Diastolic 80 mmHg Respiratory Rate 16 /min Body Temperature 97.8 F Pain Level 2 BMI (Body Mass Index) 32.0 kg/m2 Results Description No Information Available Procedures Description No Information Available Medical Devices Description No Information Available Encounters Type Date Location Provider Dx Diagnosis Office Visit 07/01/2019 [facility] Ira Hill, M25.561 Pain in right 3:15p at [place] M.D. knee M25.461 Effusion, right knee S83.411D Sprain of medial collateral ligament of right knee, subs M17.11 Unilateral primary osteoarthritis, right knee S83.241A Oth tear of medial meniscus, current injury, r knee, init Office Visit 06/10/2019 2:[facility]p [facility], M25.561 Pain in right at [place] M.D. knee M25.561 Pain in right knee M25.461 Effusion, right knee M25.461 Effusion, right knee M23.8x1 Other internal derangements of right knee M17.11 Unilateral primary osteoarthritis, right knee Office Visit 04/15/2019 1:30p [facility], M25.561 Pain in right at [facility].D. knee M25.461 Effusion, right knee S83.411D Sprain of medial collateral ligament of right knee, subs M17.11 Unilateral primary osteoarthritis, right knee Assessments Date Code Description Provider 10/09/2019 M25.561 Pain in right knee Ira Hill M.D. 10/09/2019 M25.461 Effusion, right knee Ira Hill M.D. 10/09/2019 M17.11 Unilateral primary osteoarthritis, right knee Ira Hill M.D. 10/09/2019 S83.241A Other tear of medial meniscus, current injury, Ira Hill M.D. right knee, initial encounter 07/01/2019 M25.561 Pain in right knee Ira Hill M.D. 07/01/2019 M25.461 Effusion, right knee Ira Hill M.D. 07/01/2019 S83.411D Sprain of medial collateral ligament of right Ira Hill M.D. knee, subsequent encounter 07/01/2019 M17.11 Unilateral primary osteoarthritis, right knee Ira Hill M.D. 07/01/2019 S83.241A Other tear of medial meniscus, current injury, Ira Hill M.D. right knee, initial encounter 06/10/2019 M25.561 Pain in right knee Ira Hill M.D. 06/10/2019 M25.561 Pain in right knee Ira Hill M.D. 06/10/2019 M25.461 Effusion, right knee Ira Hill M.D. 06/10/2019 M25.461 Effusion, right knee Ira Hill M.D. 06/10/2019 M23.8x1 Other internal derangements of right knee Ira Hill M.D. 06/10/2019 M17.11 Unilateral primary osteoarthritis, right knee Ira Hill M.D. 04/15/2019 M25.561 Pain in right knee Adilson JaramilloDStephany 04/15/2019 M25.461 Effusion, right knee Ira Hill M.D. 04/15/2019 S83.411D Sprain of medial collateral ligament of right Ira Hill M.D. knee, subsequent encounter 04/15/2019 M17.11 Unilateral primary osteoarthritis, right knee Ira Hill M.D. Plan of Treatment Future Appointment(s):11/11/2019 1:45 pm - Ira Hill M.D. at [facility] at [id number]/09/2019 - Ira Hill M.D.M25.561 Pain in right kneeFollow up:Follow up: 10-14 days doihxcS40.461 Effusion, right kneeM17.11 Unilateral primary osteoarthritis, right kneeS83.241A Other tear of medial meniscus, current injury, right knee, initial encounter Functional Status Description No Information Available Mental Status Description No Information Available Referrals Description No Information Available
[2019-10-11 09:25] VITALS: BP 132/75
[2019-10-11 10:41] LABS: Influenza A Molecular Negative (Negative); Influenza B Molecular Negative (Negative)
--- NOTE | 2019-10-23 10:18 | UC ---
FLU HPI - HPI Summary HPI Summary: 44 year old male presents with sore throat, fever, chills, body aches that started on . + chills. No SOB, chest pain ALso complaints of toothache with broken tooth x weeks, intermittent hurting but recently much worse with increased pain, painful chewing. unsure if sinus presssure is from toothache or cold - History of Current Complaint Chief Complaint: UCGeneralIllness Stated Complaint: FEVER Time Seen by Provider: 10/11/19 10:11 Hx Obtained From: Patient Onset/Duration: Sudden Onset, Lasting Days Severity Currently: Moderate Severity Initially: Moderate Pain Intensity: 6 Pain Scale Used: 0-10 Numeric - Allergy/Home Medications Allergies/Adverse Reactions: Allergies Allergy/AdvReac Type Severity Reaction Status Date / Time amoxicillin Allergy Hives Verified 10/22/19 10:50 PMH/Surg Hx/FS Hx/Imm Hx Previously Healthy: Yes - Surgical History Surgical History: Yes Surgery Procedure, Year, and Place: right leg, multiple surgeries- NO METALLIC IMPLANTS PER PT/ NONE NOTED ON X-RAYS DONE HERE - Family History Known Family History: Positive: Hypertension, Other - mother has osteoarthritis , osteoporosis Negative: Cardiac Disease, Diabetes - Social History Alcohol Use: None Substance Use Type: None Substance Use Comment - Amount & Last Used: 3x weekly Smoking Status (MU): Heavy Every Day Tobacco Smoker Type: Cigarettes Review of Systems All Other Systems Reviewed And Are Negative: Yes Constitutional: Positive: Fever, Chills, Fatigue ENT: Positive: Sore Throat, Nasal Discharge, Sinus Congestion, Sinus Pain/ Tenderness Respiratory: Positive: Cough. Negative: Shortness Of Breath Cardiovascular: Negative: Chest Pain Musculoskeletal: Positive: Myalgia Neurological/Mental Status: Positive: Negative Psychological: Positive: Negative Is Patient Immunocompromised?: No Physical Exam Triage Information Reviewed: Yes Appearance: No Pain Distress, Well-Nourished, Ill-Appearing - mild Vital Signs: Initial Vital Signs Temp 99.8 F 10/11/19 09:22 Pulse 100 10/11/19 09:22 Resp 18 10/11/19 09:22 BP 132/75 10/11/19 09:22 Pulse Ox 100 10/11/19 09:22 Vital Signs Reviewed: Yes Eyes: Positive: Conjunctiva Clear ENT: Positive: Pharynx normal, Nasal congestion, TMs normal, Sinus tenderness - frontal, max b/l. Negative: Pharyngeal erythema, Tonsillar swelling, Tonsillar exudate, Uvula midline Dental: Positive: Other: - poor dentation with fractured tooth left upper with associated erythema, no abscess seen. no edema facial Neck: Positive: Supple, Nontender, No Lymphadenopathy. Negative: Nuchal Rigidity, Enlarged Nodes @ Respiratory: Positive: Chest non-tender, Lungs clear, Normal breath sounds, No respiratory distress, No accessory muscle use. Negative: Crackles, Rhonchi, Stridor, Expiration Cardiovascular: Positive: RRR, No Murmur Musculoskeletal Exam: Normal Neurological Exam: Normal Flu Course/Dx - Course Course Of Treatment: Viral Illness - Work note given - Rest, increase hydration - Over the counter medications as needed for symptoms, such as cough, fever Toothache - Antibiotics x 10 days as directed - Follow up with dentist for extraction - Motrin/ Tylenol as needed for pain - Differential Dx/Diagnosis Provider Diagnosis: Toothache, Viral URI Discharge ED - Sign-Out/Discharge Documenting (check all that apply): Patient Departure All imaging exams completed and their final reports reviewed: No Studies - Discharge Plan Condition: Good Disposition: HOME Patient Education Materials: Viral Syndrome (ED), Toothache (ED) Forms: *Work Release Referrals: Jessica Carmona MD [Primary Care Provider] - Additional Instructions: Viral Illness - Work note given - Rest, increase hydration - Over the counter medications as needed for symptoms, such as cough, fever Toothache - Antibiotics x 10 days as directed - Follow up with dentist for extraction - Motrin/ Tylenol as needed for pain - Billing Disposition and Condition Condition: GOOD Disposition: Home
== END 2019-10-11 10:53 | disposition home or self-care (01) ==
LOC: UCEAST 09:16
DX: J06.9 Acute upper respiratory infection, unspecified (principal); K08.89 Other specified disorders of teeth and supporting structures; K03.81 Cracked tooth; R50.9 Fever, unspecified; Z88.0 Allergy status to penicillin; F17.210 Nicotine dependence, cigarettes, uncomplicated
CPT/HCPCS: 99212; G0463

== ENCOUNTER 2019-10-31 05:48 | Day surgery (SDC) | payer OTHER ==
--- NOTE | 2019-10-11 10:18 | HP ---
HISTORY AND PHYSICAL: DATE OF ADMISSION/SURGERY: 10/31/19 DATE OF OFFICE VISIT: 10/09/19 SURGEON: Ira Hill MD * (DICTATED BY WANG SON) PROCEDURE: Right knee arthroscopy with partial meniscectomy, possible chondroplasty, possible synovectomy, and possible plica excision. CHIEF COMPLAINT: Right knee pain. HISTORY OF PRESENT ILLNESS: Mr. Mcnamara is a 44-year-old gentleman who injured his right knee while at work. He has failed conservative treatment and elected to proceed with right knee arthroscopy. PAST MEDICAL HISTORY: Chronic pain. PAST SURGICAL HISTORY: Right lower extremity and left lower extremity surgery, unknown. CURRENT MEDICATIONS: 1. Morphine 30 mg extended release twice a day. 2. Dilaudid 2 mg 1 to 2 tabs every 4 to 6 hours as needed. ALLERGIES: PENICILLIN. FAMILY HISTORY: Cancer and stroke. SOCIAL HISTORY: He is a 44-year-old gentleman. He lives with his daughter. He smokes approximately 25 cigarettes a day, uses occasional marijuana and alcohol. REVIEW OF SYSTEMS: A complete 14-point review of systems was reviewed with the patient, all negative or noncontributory. PHYSICAL EXAMINATION GENERAL: He is well developed, well nourished, in no acute distress. VITAL SIGNS: He stands 76 inches tall, weighs 264 pounds. His blood pressure is 126/71, his heart rate is 91. HEENT: Normocephalic, atraumatic. NECK: Supple. No palpable lymph nodes. PULMONARY: The lungs are clear to auscultation bilaterally. CARDIO: Regular rate and rhythm. Strong S1, S2. ABDOMEN: Soft, nontender, nondistended. MUSCULOSKELETAL: Right lower extremity: The skin is intact. There are no open wounds or abrasions. Range of motion is 5 to 120 degrees of flexion. There is some tenderness along the medial joint line, positive Peng's, positive Apley's, negative Asad's. He is able to dorsiflex, but this is minimal secondary to severe ankle arthritis and he is able to plantarflex. He has 2+ dorsalis pedis pulse and intact sensation. NEUROLOGICAL: He is alert and oriented x3. ASSESSMENT AND PLAN: Ms. Mcnamara is a 44-year-old gentleman with right knee pain since January 2019 when he fell down stairs at work. An MRI confirms a large medial meniscus tear. He has elected to proceed with a right knee arthroscopy with partial meniscectomy, possible chondroplasty, possible synovectomy, and possible plica excision. The surgery is scheduled for 10/31/[address] Hill discussed the risks and benefits of the surgery at today's visit and all of his questions were answered. He will follow up with Dr. Hill 2 weeks after the surgery. WANG SON [id number]/[facility] #: [id number] MTDD
[~2019-10-31 05:48] MED LIST: Buffered Lidocaine 1% SYRIN* 1 ML/SYRINGE INTRADERM ONE
[2019-10-31] MEDS ORDERED: Dexamethasone IV* 4 MG/ML 1 ML (4 MG) ONE (06:00)
[2019-10-31] MEDS ORDERED: Lactated Ringers 1000 ML Bag* 1,000 ML IV SCH (06:00)
[2019-10-31] MEDS ORDERED: Clindamycin 900 MG/D5W BAG(*) 900 MG/50 ML BAG IVPB ONE (06:00)
[2019-10-31] MEDS ORDERED: Dexamethasone IV* 4 MG/ML 1 ML (4 MG) IV SLOW PU ONE (06:00)
[2019-10-31] MEDS ORDERED: Famotidine IV* 10 MG/ML 2 ML (20 mg) IV ONE (06:00)
[2019-10-31] MEDS ORDERED: Buffered Lidocaine 1% SYRIN* 1 ML/SYRINGE INTRADERM ONE (06:01)
[2019-10-31] MEDS ORDERED: Famotidine IV* 10 MG/ML 2 ML (20 mg) ONE (06:01)
[2019-10-31] MEDS ORDERED: ROPIVACAINE 5 MG/ML 30 ML BTL (0.5%) ONE (06:57)
[2019-10-31] MEDS ORDERED: methylPREDNISolone ACETATE 80* 80 MG/ML 1 ML VIAL ONE (06:57)
[2019-10-31] MEDS ORDERED: EPINEPHRINE 1 MG/ML 1 ML VIAL ONE (06:57)
[2019-10-31] MEDS ORDERED: Propofol* 10 MG/ML 20 ML BTL ONE (07:08)
[2019-10-31] MEDS ORDERED: Ketorolac INJ* 30 MG/ML 1 ML VIAL ONE (07:08)
[2019-10-31] MEDS ORDERED: Midazolam* 1 MG/ML 2 ML VIAL (2 MG) ONE (07:08)
[2019-10-31] MEDS ORDERED: Ondansetron INJ* 2 MG/ML VIAL ONE (07:08)
[2019-10-31] MEDS ORDERED: KETAMINE HCL* 50 MG/ML 10 ML VIAL ONE (07:08)
[2019-10-31] MEDS ORDERED: Lidocaine 2% PF * 5 ML VIAL ONE (07:09)
[2019-10-31] MEDS ORDERED: DiMENhydriNATE IV* 50 MG/ML VIAL IV PUSH PRN (08:06)
[2019-10-31] MEDS ORDERED: Naloxone* 0.4 MG/ML 1 ML VIAL IV PRN (08:06)
[2019-10-31] MEDS: fentaNYL* 50 MCG/ML 2 ML VIAL (100 MCG VIAL) IV PRN ×3 (09:00→09:14)
[2019-10-31] MEDS ORDERED: fentaNYL* 50 MCG/ML 2 ML VIAL (100 MCG VIAL) ONE ×2 (09:03→09:14)
[2019-10-31 10:23] VITALS: BP 115/76
--- NOTE | 2019-11-01 01:58 | OP ---
DATE OF OPERATION: 10/31/19 [facility] DATE OF : 79 SURGEON: Ira Hill MD. REPEATER OPERATOR: WANG Thomas. Ms. Boss did help throughout the procedure with preparation of the leg, wound retraction, and manipulation of the knee and wound closure. ANESTHESIOLOGIST: Dr. Bustamante. ANESTHESIA: General. PRE-OP DIAGNOSIS: Right knee medial meniscal tear. POST-OP DIAGNOSES: Right knee medial meniscal tear, lateral meniscal tear. OPERATIVE PROCEDURE: Right knee arthroscopy with partial medial meniscectomy and partial lateral meniscectomy. BRIEF HISTORY/INDICATIONS: Mr. Mcnamara is a 44-year-old gentleman who injured himself when he fell down stairs twisting his right knee in January 2019. This was a workmen's comp injury clearly . Afterwards, he had mechanical symptoms and swelling in the knee. He failed conservative treatment over several months and went on to have MRI confirming medial meniscal tear. Due to continued pain and decreased quality of life, he elected to undergo right knee arthroscopy with partial meniscectomy. Informed consent was obtained from the patient. He understood the risks of surgery included, but were not limited to, bleeding, infection, damage to nearby structures, continued pain, need for further surgery , re-tear of the meniscus, progression of arthritis, anesthesia complications, stroke, heart attack, blood clot, and . He wished to proceed. INTRAOPERATIVE FINDINGS: Intraoperatively, the patient was noted to have no visible ACL, very minimal PCL visible. He had minimal degenerative changes in the medial and patellofemoral compartment. He had a large parrot beak type tear involving the posterior 50% of the medial meniscus in the red-white zone. He had a radial-type tear in the posterior horn of the lateral meniscus in the red-white zone. ESTIMATED BLOOD LOSS: 25 cc. COMPLICATIONS: None. SPECIMENS: None. DESCRIPTION OF PROCEDURE: Mr. Mcnamara was identified in the preanesthesia unit. His right knee was marked as the correct operative side. Informed consent was signed and placed in the chart. The patient was taken to the operating room and placed under anesthesia without difficulty. The right lower extremity was prepped and draped in the usual sterile fashion. Preop time-out was made to correctly identify the patient's side and site. Appropriate perioperative antibiotics were given within 1 hour of incision. A standard anterolateral 0.5 cm portal incision was made with a 10 blade and carried down to the capsule. Trocar was introduced. As soon as the light and water sources were turned on, there was immediate visualization of the suprapatellar pouch. A tour of the knee joint was performed. Suprapatellar pouch had no obvious abnormalities. Patellofemoral compartment had some grade 1 and 2 Outerbridge cartilage changes. The medial gutter showed no obvious loose body or plica. Medial compartment showed grade 2 or 3 Outerbridge cartilage changes along the femoral condyle and a small surface area with some frayed cartilage. A visible anteriorly displaced parrot beak type tear of the posterior one-half of the medial meniscus was visible. There was no visible ACL. Very minimal PCL visible. The knee was placed in a [id number] position. There was a radial tear along the posterior horn of the lateral meniscus with some displacement into the joint space. This was in the red- white zone. Minimal degenerative changes in the lateral compartment. Lateral gutters showed no loose body or plica. Under direct visualization, a medial portal incision was made. A probe was introduced and a second tour of the knee joint was performed. Shaver and radiofrequency ablation wand were used to excise the inflammatory tissue from the anterior portion of the knee. Next, a straight biter and shaver were used to perform partial and medial meniscectomy. A large parrot beak type tear was excised. This was in the red-white zone in the posterior 50% of the medial meniscus. Further probing of the meniscus showed no additional tears. Radiofrequency ablation wand was used to further smooth the edge of the medial meniscus. Next, the knee was placed in a figure-of-4 position. Shaver and radiofrequency ablation wand were used to excise the radial tear in the posterior horn of the lateral meniscus. This tear was carefully excised. Further probing of the lateral meniscus showed no additional tears. The knee was copiously irrigated with sterile saline. All instruments were removed. Incisions were closed using 3-0 nylon suture. Sterile Xeroform, 4x4s , and Webril were used to cover the incision. Wing wrap and cold pack were placed over this. The patient's anesthesia was reversed without difficulty. He was taken to the PACU in stable condition. Intended weightbearing will be weightbearing as tolerated. Intended DVT prophylaxis will be aspirin. He will follow up in 2 weeks' time for suture removal. [id number]/[facility] #: [id number] [facility]
== END 2019-10-31 10:25 | disposition home or self-care (01) ==
LOC: OR 05:48
PROVIDERS: ATTEND Orthopaedic Surgery Adult Reconstructive Orthopaedic Surgery
DX: S83.241A Other tear of medial meniscus, current injury, right knee, initial encounter (principal); S83.281A Other tear of lateral meniscus, current injury, right knee, initial encounter; W10.9XXA Fall (on) (from) unspecified stairs and steps, initial encounter; Y92.9 Unspecified place or not applicable; Y99.0 Civilian activity done for income or pay; G89.29 Other chronic pain; F17.210 Nicotine dependence, cigarettes, uncomplicated; Z68.33 Body mass index [BMI] 33.0-33.9, adult; M19.90 Unspecified osteoarthritis, unspecified site
CPT/HCPCS: J1040; J1100; J1885; J2250; J2405; J2704; J2795; J3010